=== PATIENT | male | born 1975 | race Caucasian/White ===

== ENCOUNTER 2020-04-01 09:40 | Emergency (ER) | payer SELFPAY ==
[~2020-04-01] VITALS: Ht 182.9 cm; Wt 113.4 kg
--- NOTE | 2020-04-01 09:40 | NUR ---
pt biba to bed 9
--- NOTE | 2020-04-01 09:44 | NUR ---
DR HATCH AT BEDSIDE FOR EVALUATION
[2020-04-01 09:46] VITALS: BP 110/64
[2020-04-01] MEDS ORDERED: TETRACAINE HCL/PF 0.5% OPTH 4 ML BTL ONE (09:46)
[2020-04-01] MEDS ORDERED: FLUORESCEIN OPTH STRIP 1 MG ONE (09:46)
--- NOTE | 2020-04-01 09:50 | NUR ---
PT REFUSED EXAMINATION AND TREATMENT. PT LEFT AMA AND REFUSED TO SIGN PAPERS.
[2020-04-01 09:51] VITALS: BP 110/64
--- NOTE | 2020-04-01 09:51 | NUR ---
OFFERED HOMELESS PACKET BUT REFUSED TO TAKE. PT ESCORTED OUT OF ED BY SECURITY
--- NOTE | 2020-04-01 10:02 | NUR ---
Patient does not wish to proceed with medical care recommended by Dr. Elias. Patient given information related to possible complications, up to and including , which could occur as a result of leaving hospital at this time. Patient verbalizes understanding of risks involved leaving against medical advice. Patient refused to sign AMA form and refused to take discharge papers and homeless packet. Patient refused examination and treatment.
== END 2020-04-01 10:02 | disposition left against medical advice (07) ==
LOC: MED 09:40
DX: H57.13 Ocular pain, bilateral (principal); F31.9 Bipolar disorder, unspecified
CPT/HCPCS: 99283